=== PATIENT | female | born 1980 | race Asian ===

== ENCOUNTER → 2017-05-26 | Outpatient (CLI) | payer OTHER ==
[2017-05-26 14:42] LABS: HEMATOCRIT 36.1 % (37-47); HEMOGLOBIN 12.3 g/dL (12.0-16.0); MEAN CELL VOLUME 92.1 fL (80-100); MEAN CORPUSCULAR HEMOGLOBIN 31.4 pg (25-34); MEAN CORPUSCULAR HGB CONC 34.1 g/dl (32-36); MEAN PLATELET VOLUME 10.2 fL (7.4-10.4); PLATELET COUNT 181 K/uL (130-400); RED BLOOD COUNT 3.92 M/uL (4.2-5.4); RED CELL DISTRIBUTION WIDTH CV 12.6 % (11.5-14.5); RED CELL DISTRIBUTION WIDTH SD 42.7 fL (36.4-46.3); WHITE BLOOD COUNT 4.83 K/uL (4.8-10.8)
== END | disposition home or self-care (01) ==
LOC: C.LAB1850 13:56
DX: N92.6 Irregular menstruation, unspecified (principal)

== ENCOUNTER → 2017-06-16 | Outpatient (CLI) | payer OTHER ==
[~2017-06-16] MED LIST: ACET-749 PO; MTR600X PO
--- NOTE | 2017-06-23 10:57 | CODING QUERY NO DIAGNOSIS ---
TREATMENT RENDERED WITHOUT A DIAGNOSIS : 81 To promote full compliance with coding requirements relating to patient care, physician participation is requested in all cases of flight engineer uncertainty. Please assist us with providing a diagnosis/symptom for the test(s) below: A diagnosis/symptom was not documented on your Order. A valid diagnosis/symptom is required to bill all insurances. Please remember that we are unable to code a diagnosis of rule out, probable, possible, questionable, or suspected. Tests that require a diagnosis: DOS: 06/16/17 * ENDOMETIRAL BIOPSY DIAGNOSIS: Provider Signature: Date: Thank you Vandana G[facility] Information Management Once completed, please kindly fax back to [phone] For questions please call [phone]
== END | disposition home or self-care (01) ==
LOC: C.PATHSPEC 17:31
PROVIDERS: ATTEND Obstetrics & Gynecology
DX: N92.6 Irregular menstruation, unspecified (principal)

== ENCOUNTER 2022-12-01 08:58 | Inpatient (IN) ==
[2022-12-01] MEDS ORDERED: OXYTOCIN 30 UNITS/500 ML BAG IV PRN ×3 (09:26→22:50)
[2022-12-01] MEDS ORDERED: LIDOCAINE 1% LOCAL 20 ML VIAL INFIL PRN (09:26)
[2022-12-01] MEDS ORDERED: LACTATED RINGER'S 1,000 ML IV PRN (09:26)
[2022-12-01 10:09] LABS: Hematocrit (blood only) 33.1 % (37.0-47.0); Hemoglobin 11.5 g/dl (12.0-16.0); Mean Corpuscular Hemoglobin 32.9 pg (25.0-34.0); Mean Corpuscular Hgb Conc 34.7 g/dL (32.0-36.0); Mean Corpuscular Volume 94.6 fL (80.0-100.0); Mean Platelet Volume 9.6 fL (9.4-12.4); Platelet Count 161 K/uL (130-400); RDW Coefficient of Variation 13.3 % (11.5-14.5); RDW Standard Deviation 45.3 fL (36.4-46.3); White Blood Count 6.13 K/ul (4.8-10.8)
--- NOTE | 2022-12-01 14:30 | Labor Progress Brief Note ---
Date of Service December 01, 2022 Assessment & Plan Admission and Anticipated Discharge Date Admission Date: December 01, 2022 Physical Exam Genitourinary: Manual OB Exam: + cervical dilation 4 cm, + cervical effacement 60%, + station -2 and + amniotic fluid meconium OB Exam Monitor Tracing: + external FHT monitor used, + external uterine monitor used, + category I and + normal FHT variability AROM with Amni-hook meconium fluid noted Results & Data Vital Signs (Past 12 Hours) Vital Signs Temp Pulse Resp BP 12/01/22 09:49 37 C 12/01/22 14:25 19 12/01/22 14:25 37.1 C 12/01/22 09:43 85 105/70
--- NOTE | 2022-12-01 19:05 | Labor Progress Brief Note ---
Date of Service December 01, 2022 Assessment & Plan Admission and Anticipated Discharge Date Admission Date: December 01, 2022 Physical Exam Genitourinary: Manual OB Exam: + cervical dilation 8 cm, + cervical effacement 100%, + station 0 and + amniotic fluid meconium OB Exam Monitor Tracing: + external FHT monitor used, + external uterine monitor used, + category I and + normal FHT variability Results & Data Vital Signs (Past 12 Hours) Vital Signs Temp Pulse Resp BP 12/01/22 09:49 37 C 12/01/22 17:20 18 12/01/22 17:20 37.2 C 12/01/22 14:25 19 12/01/22 14:25 37.1 C 12/01/22 09:43 85 105/70
--- NOTE | 2022-12-01 19:56 | Labor Progress Brief Note ---
Date of Service December 01, 2022 Assessment & Plan Admission and Anticipated Discharge Date Admission Date: December 01, 2022 Physical Exam Genitourinary: Manual OB Exam: + cervical dilation 10 cm, + cervical effacement 100% and + station 0 OB Exam Monitor Tracing: + external FHT monitor used, + external uterine monitor used, + category I and + normal FHT variability Results & Data Vital Signs (Past 12 Hours) Vital Signs Temp Pulse Resp BP 12/01/22 19:09 36.6 C 12/01/22 09:49 37 C 12/01/22 19:06 90 125/80 12/01/22 17:20 18 12/01/22 17:20 37.2 C 12/01/22 14:25 19 12/01/22 14:25 37.1 C 12/01/22 09:43 85 105/70
--- NOTE | 2022-12-01 21:11 | Delivery Summary ---
Vaginal Delivery Summary Date of Service December 01, 2022 Vaginal Delivery Summary Delivery Note live male JIMY with loose nuchal cord x1 reduced at dekivery of head over intact perineum with delayed cord clamping and Apgars 8/9 weight pending. Cord blood obtained followed by spontaneous delivery of intact placenta. No tears. EBL 150 ml. Final spomge and instrument count are correct. Mom and baby stable.
[2022-12-01] MEDS ORDERED: OXYTOCIN 20 UNITS in LACTATED RINGER'S 1,000 ML IV SCH (22:50)
[2022-12-01] MEDS ORDERED: bisacodyL 10 MG SUPP PR PRN (22:50)
[2022-12-01] MEDS ORDERED: BENZOCAINE 20% SPRY 85 APPLN/85 GM CAN EXT PRN (22:50)
[2022-12-01] MEDS ORDERED: DIPHTHERIA/TETANUS/PERTUSSIS Vaccine (Tdap, Age 7+yrs) 0.5mL SYR/VL IM ONE (22:50)
[2022-12-01] MEDS ORDERED: HYDROCORTISONE ACETATE 25 MG SUPP PR PRN (22:50)
[2022-12-01] MEDS ORDERED: IBUPROFEN 600 MG TAB PO PRN (22:50)
[2022-12-01] MEDS ORDERED: ACETAMINOPHEN 325 MG TAB PO PRN (22:50)
[2022-12-02] MEDS: DOCUSATE SODIUM 100 MG CAP PO SCH ×2 (08:20→20:26)
[2022-12-02] MEDS: PRENATAL VITAMIN 1 TAB PO SCH (08:20)
[2022-12-02] MEDS ORDERED: IRON PO SCH (09:00)
[2022-12-02] MEDS ORDERED: [UNRECOGNIZED DRUG - OTHER] PO SCH (09:00)
[2022-12-02 09:05] LABS: Hematocrit (blood only) 28.6 % (37.0-47.0); Hemoglobin 9.9 g/dl (12.0-16.0); Mean Corpuscular Hemoglobin 32.8 pg (25.0-34.0); Mean Corpuscular Hgb Conc 34.6 g/dL (32.0-36.0); Mean Corpuscular Volume 94.7 fL (80.0-100.0); Mean Platelet Volume 10.3 fL (9.4-12.4); Platelet Count 154 K/uL (130-400); RDW Coefficient of Variation 13.2 % (11.5-14.5); RDW Standard Deviation 45.3 fL (36.4-46.3); Red Blood Count 3.02 M/uL (4.20-5.40); White Blood Count 8.69 K/ul (4.8-10.8)
--- NOTE | 2022-12-02 09:23 | Obstetrical Progress Note ---
Date of Service December 02, 2022 Subjective Ambulation: ambulating normally Voiding: no voiding problems Passing Gas:: Yes Diet Tolerance:: regular diet Lochia:: Small Feeding Type:: breast feeding Current Pain Level(1-10): 0 doing well Physical Exam Constitutional WD/WN, vitals as above Gastrointestinal (Abdomen) Inspection/Auscultation: abdomen normal to inspection abdomen soft and non-tender uterus firm below U Musculoskeletal Extremities: extremities normal to inspection Skin no rashes, warm and dry Results & Data Vital Signs (Past 12 Hours) Vital Signs Temp Pulse Pulse Pulse Resp BP BP 12/02/22 07:30 37.3 C 76 16 97/63 L 12/02/22 03:30 36.8 C 92 H 18 109/66 12/01/22 22:53 36.8 C 89 18 100/64 12/01/22 21:55 18 12/01/22 21:25 18 12/01/22 22:25 18 12/01/22 22:27 107 H 100/62 12/01/22 22:12 99 H 98/60 L 12/01/22 21:57 104 H 111/71 12/01/22 21:42 90 103/68 12/01/22 21:28 83 102/58 L Pulse Ox O2 Del Method 12/02/22 07:30 98 Room Air 12/02/22 03:30 98 Room Air 12/01/22 22:53 98 Room Air 12/01/22 21:55 12/01/22 21:25 12/01/22 22:25 12/01/22 22:27 12/01/22 22:12 12/01/22 21:57 12/01/22 21:42 12/01/22 21:28 Laboratory Results 12/01/22 12/02/22 09:40 05:50 WBC 6.13 8.69 RBC 3.50 L 3.02 L Hgb 11.5 L 9.9 L Hct 33.1 L 28.6 L MCV 94.6 94.7 MCH 32.9 32.8 MCHC 34.7 34.6 RDW Std Deviation 45.3 45.3 RDW Coeff of Blayne 13.3 13.2 Plt Count 161 154 MPV 9.6 10.3
[2022-12-02] MEDS ORDERED: bisacodyL 5 MG TABEC PO SCH (20:00)
[2022-12-03 06:10] LABS: Hematocrit (blood only) 29.5 % (37.0-47.0)
[2022-12-03] MEDS: PRENATAL VITAMIN 1 TAB PO SCH (07:39)
[2022-12-03] MEDS: DOCUSATE SODIUM 100 MG CAP PO SCH (07:40)
== END 2022-12-03 10:45 | disposition home or self-care (01) | DRG 807 ==
LOC: OPB 08:58 → 4S1 09:01 → 4E2 23:14